=== PATIENT | male | born 1985 | race Hispanic/Latino ===

== ENCOUNTER 2018-03-08 13:50 | Emergency (ER) | payer SELFPAY ==
--- NOTE | 2018-03-08 15:14 | CT ---
CT BRAIN WITHOUT CONTRAST: Date: 03/08/18 HISTORY: Trauma. Syncope. Neck pain. FINDINGS: No evidence of infarct, hemorrhage, midline shift, or abnormal extra-axial fluid collections are seen . The ventricular size is normal and the basilar cisterns are patent. The bony calvarium is intact. T he visualized paranasal sinuses and mastoid air cells are well aerated. IMPRESSION: No CT evidence of acute intracranial process. POS: [facility]
--- NOTE | 2018-03-08 15:15 | CT ---
CT CERVICAL SPINE WITH CORONAL AND SAGITTAL REFORMATIONS: Date: 03/08/18 HISTORY: Trauma. Neck pain. FINDINGS/IMPRESSION: Degenerative changes are seen in the cervical spine. No fracture or subluxation is identified. No fac et malalignment is seen. POS: [id number]
== END 2018-03-08 15:26 | disposition home or self-care (01) ==
LOC: ERS 13:50
DX: S19.9XXA Unspecified injury of neck, initial encounter (principal); F17.210 Nicotine dependence, cigarettes, uncomplicated; W20.8XXA Other cause of strike by thrown, projected or falling object, initial encounter
CPT/HCPCS: 70450; 72125